=== PATIENT | female | born 1965 | race Caucasian/White ===

== ENCOUNTER 2019-01-30 11:24 | Emergency (ER) | payer MEDICAID ==
[2019-01-30 12:18] VITALS: BP 150/92; PULSE 56; RESP 18; TEMP 97.9; O2SAT 98
--- NOTE | 2019-01-30 12:36 | ED PDOC ---
HPI: CCC, URI, Sore Throat Time Seen by Provider: 01/30/19 12:23 Chief Complaint (Nursing): Abdominal Pain History Per: Patient Onset/Duration Of Symptoms: Days (5) Current Symptoms Are (Timing): Still Present Location Of Pain: Throat Associated Symptoms: Cough, Sputum (White) Severity: Moderate Additional Complaint(s): Cough productive white sputum assoc with fever and sore throat x 5 days, Has right upper back pain when coughing. No SOB. Past Medical History Vital Signs: Last Vital Signs Temp 97.9 F 01/30/19 12:14 Pulse 56 L 01/30/19 12:14 Resp 18 01/30/19 12:14 BP 150/92 H 01/30/19 12:14 Pulse Ox 98 01/30/19 12:14 - Medical History PMH: HTN - Surgical History Surgical History: Tonsillectomy - Family History Family History: States: [place] (Father ? Age 75) - Home Medications Home Medications: Ambulatory Orders Medication Instructions Recorded Cyclobenzaprine HCl [Flexeril] 10 mg PO BID PRN #20 tab 10/18/14 Hydrochlorothiazide 25 mg PO DAILY #30 tab 10/18/14 Oxycodone HCl/Acetaminophen 1 tab PO Q6 PRN #18 tab 10/18/14 [Percocet 325 mg-5 mg] Naproxen [Naprosyn] 500 mg PO BID PRN #20 tablet 11/22/16 Azithromycin [Zithromax] 250 mg PO DAILY #6 tab 01/30/19 Promethazine/Codeine 5 ml PO Q8 #60 ml 01/30/19 [Codeine/Promethazine 10 MG/5 Ml-6.25 MG/5 Ml] - Allergies Allergies/Adverse Reactions: Allergies Allergy/AdvReac Type Severity Reaction Status Date / Time No Known Allergies Allergy Verified 10/18/14 16:58 Review of Systems Constitutional: Positive for: Fever ENT: Positive for: Throat Pain Respiratory: Positive for: Cough Musculoskeletal: Positive for: Back Pain Physical Exam - Physical Exam Appears: Positive for: Non-toxic, No Acute Distress Skin: Positive for: Normal Color, Warm, DRY ENT: Positive for: Pharyngeal Erythema. Negative for: Tonsillar Exudate, Tonsillar Swelling Cardiovascular/Chest: Positive for: Regular Rate, Rhythm Respiratory: Positive for: CNT, Normal Breath Sounds - ECG O2 Sat by Pulse Oximetry: 98 Disposition - Clinical Impression Clinical Impression: Bronchitis - Patient ED Disposition Is Patient to be Admitted: No Counseled Patient/Family Regarding: Studies Performed, Diagnosis, Need For Followup, Rx Given - Disposition Referrals: [facility] [Outside] Disposition: Routine/Home Disposition Time: 14:07 Condition: FAIR Prescriptions: Azithromycin [Zithromax] 250 mg PO DAILY #6 tab Promethazine/Codeine [Codeine/Promethazine 10 MG/5 Ml-6.25 MG/5 Ml] 5 ml PO Q8 #60 ml Instructions: Acute Bronchitis Forms: [facility] (Frisian) Print Language: ANGOLAN
--- NOTE | 2019-01-30 13:55 | RAD ---
Date of service: 01/30/2019 HISTORY: cough COMPARISON: 11/22/2016 TECHNIQUE: Chest PA and lateral FINDINGS: LUNGS: No active pulmonary disease. PLEURA: No significant pleural effusion identified. No pneumothorax apparent. CARDIOVASCULAR: Very mild aortic atherosclerotic calcification present. Normal cardiac size. No pulmonary vascular congestion. OSSEOUS STRUCTURES: No significant abnormalities. VISUALIZED UPPER ABDOMEN: Normal. OTHER FINDINGS: None. IMPRESSION: No active disease.
--- NOTE | 2019-02-01 13:09 | CARD ---
APPROVED REPORT Date of service: 01/30/2019 EKG Measurement Heart [id number] <Conclusion> Sinus bradycardia Nonspecific ST abnormality Abnormal ECG
== END 2019-01-30 14:22 | disposition home or self-care (01) ==
LOC: H.ER 11:24
DX: J40 Bronchitis, not specified as acute or chronic (principal); I10 Essential (primary) hypertension